=== PATIENT | female | born 1965 | race Two or more races ===

== ENCOUNTER 2024-08-18 10:50 | Day surgery (SDC) | payer MEDICAID, SELFPAY ==
--- NOTE | 2024-08-14 14:40 | EKG_ITS ---
[facility] Test Date: 2024-08-14 Pat Name: RYDER ROBERTSON Department: Room: - Gender: Female Scaffold Builder: HSARON : 1965 Requested By: Andrew Manriquez Order Number: [id number] Reading MD: Andrew Manriquez Measurements Intervals [place] Rate: 78 P: 67 UT: 155 QRS: -5 QRSD: 135 T: 39 QT: 404 QTc: 462 Interpretive Statements SINUS RHYTHM RIGHT BUNDLE BRANCH BLOCK POSSIBLE ANTERIOR MYOCARDIAL INFARCTION , PROBABLY OLD No previous ECG available for comparison /[id number]/[id number]
[2024-08-14 14:52] VITALS: BMI 34.3
[2024-08-14 15:50] LABS: Basophils # (Auto) 0.1 Thou/mm3 (0.0-0.2); Basophils % (Auto) 1 % (0-2.5); Eosinophils # (Auto) 0.2 Thou/mm3 (0.0-0.5); Eosinophils % (Auto) 4 % (0-10); Hematocrit 45.7 % (36.0-46.0); Hemoglobin 14.9 g/dL (12.0-16.0); Immature Granulocytes % (Auto) 0 % (0-0); Immature Granulocytes Auto 0.02 Thou/mm3 (0.00-0.00); Lymphocytes # (Auto) 2.8 Thou/mm3 (1.0-4.8); Lymphocytes % (Auto) 54 % (10-50); Mean Corpuscular HGB Conc 32.6 g/dl (31.0-37.0); Mean Corpuscular Hemoglobin 26.4 pg (25.0-35.0); Mean Corpuscular Volume 81 fL (80-100); Monocytes # (Auto) 0.3 Thou/mm3 (0.0-0.8); Monocytes % (Auto) 6 % (0-12); Neutrophils # (Auto) 1.8 Thou/mm3 (1.8-7.7); Neutrophils % (Auto) 36 % (37-80); Nucleated Red Blood Cell % 0 /100 WBC (0); Platelet Count 314 Thou/mm3 (140-440); RDW Standard Deviation 40.4 fL (36.4-46.3); Red Blood Count 5.65 Miln/mm3 (4.00-5.20); White Blood Count 5.1 Thou/mm3 (3.6-11.0)
[2024-08-14 15:55] LABS: Alanine Aminotransferase 20 U/L (10-49); Albumin, Serum 4.7 gm/dL (3.5-5.0); Albumin/Globulin Ratio 1.7 (1.2-2.2); Alkaline Phosphatase 87 U/L (46-116); Anion Gap 5 (7-16); Aspartate Amino Transferase < 10 U/L (0-34); BUN/Creatinine Ratio 11 Ratio (12-20); Bilirubin,Total 0.4 mg/dL (0.3-1.2); Blood Urea Nitrogen 10 mg/dL (9-23); Calcium 10.1 mg/dL (8.3-10.6); Calcium (Corrected) 10.1 mg/dL (8.5-10.1); Carbon Dioxide 28.4 mMol/L (20.0-31.0); Chloride 103 mMol/L (98-107); Creatinine (Component) 0.9 mg/dL (0.6-1.3); Estimated Creatinine Clearance 75.2 mL/min (>60); Globulin 2.7 gm/dL (2.3-3.5); Glucose 174 mg/dL (74-106); Osmolality,Calculated 274 (275-295); Sodium 136 mMol/L (136-145); Total Protein 7.4 gm/dL (5.7-8.2); eGFR > 60 See Note
[2024-08-14 15:57] LABS: HCG,Qualitative Serum Negative
[2024-08-14 16:29] LABS: INR 0.9 (0.9-1.3); Partial Thromboplastin Time 26.5 Seconds (22.0-36.0); Prothrombin Time 10.2 Seconds (9.0-12.2)
--- NOTE | 2024-08-17 15:09 | SUR.PREOP ---
Pt notified to come in at 1100 tomorrow for surgery.
[2024-08-18] VITALS (8 sets, daily range): BP systolic 101–127; BP diastolic 54–88; PULSE 66–79; RESP 12–19; TEMP 36.2–36.4; O2SAT 96–100; BMI 35.9
[2024-08-18] MEDS: RINGERS LACTATED 500 ML 500 ML 20 ML IV (12:27)
--- NOTE | 2024-08-18 13:52 | SUR.PHASEI ---
pt received from OR in recovery bay 8. pt asleep but responds to voice, breathing unlabored on room air. v/s stable. pt dressing to right hand cdi. report received from Dr. Solano and Karl BAILON.
--- NOTE | 2024-08-18 13:55 | PD.SUROPNT ---
Date of Procedure 08/18/24 Pre Op Diagnosis Severe right carpal tunnel compression Post Op Diagnosis Same Procedure Right carpal tunnel release Findings Patient had quite thick deep carpal ligament pressing over the median nerve Procedure Description Patient was given general endotracheal anesthesia. Once satisfactory anesthesia achieved a tourniquet was placed on right upper arm. Following that the part was thoroughly prepped and draped. After using Esmarch the tourniquet pressure was raised to 250 mmHg. Intravenous antibiotics was given at the time of anesthesia A skin incision was made from the discrete extending distally for about 2 to 2-1/2 inches long. Deeper dissection was carried out. The subcu tissue and fascia was incised. Following that palmar aponeurosis was incised in the line of his skin incision. The palmaris brevis muscle was encountered which was also incised. Following that deep carpal ligament was incised. A gentle stab incision was made and then a [place] was introduced underneath the deep carpal ligament and it was incised all along its vertical length Median nerve was seen. The blood vessels was seen running quite well Wound was irrigated with antibiotic solution every 4 to 5 minutes Following that the wound was closed with the help of 3-0 Prolene in an interrupted fashion. About 20 mL of quarter percent Marcaine was injected the at the skin incision site After cleaning the wound sterile dressing was applied. Tourniquet pressure was released Patient tolerated procedure well. Estimated blood loss 1 mL Anesthesia GETA Pathology / specimen None Estimated Blood Loss 1 Surgeon Andrew Stanley MD Surgical Staff Operation Date: 08/18/24 13:15 <No data on this case meets the specified criteria>
--- NOTE | 2024-08-18 14:30 | SUR.PHASEII ---
pt able to tolerate oral fluids without difficulty swallowing or nausea/vomiting.
--- NOTE | 2024-08-18 15:20 | ESHP_ITS ---
RE: MARCELO SOLER : 1965 DATE OF ADMISSION: 08/18/2024 The patient came to my office on 08/17/2024 for detailed preoperative history and physical examination. HISTORY OF PRESENT COMPLAINT: The patient presented to me earlier with history of numbness in the right hand. Outer 4 digits goes to sleep. There is burning and tingling sensation as well. At nighttime, the hand goes to sleep and patient has to shake her hand to bring it back to life. Basically clinically, she has right carpal tunnel compression. Nerve conduction studies and EMG were performed earlier, which revealed severe carpal tunnel compression. PAST MEDICAL HISTORY: The patient has history of diabetes mellitus and high blood pressure. She also has thyroid problem. No history of asthma, seizure, chest pain, myocardial infarction or bleeding disorder. PAST SURGICAL HISTORY: The patient has had , tonsillectomy, sleeve operation, and breast reduction operation. DRUG HISTORY: The patient is on: 1. Atorvastatin. 2. Cholecalciferol. 3. Diltiazem. 4. Naprosyn. 5. Gabapentin. 6. Levothyroxine. 7. Lisinopril. 8. Ozempic. ALLERGIES: NIL KNOWN. FAMILY HISTORY AND SOCIAL HISTORY: The patient denies smoking and drinking and is not working. PHYSICAL EXAMINATION: GENERAL: Normal-built lady. VITAL SIGNS: Pulse 88 per minute and blood pressure 136/84. NECK: Soft and supple. No mass felt. Trachea is centrally placed. CARDIOVASCULAR SYSTEM: First and second heart sounds normal. No murmur heard. RESPIRATORY SYSTEM: Bilateral vesicular breath sounds. Chest clear. ABDOMEN: Soft. No mass felt. Bowel sounds present. BREASTS: Not indicated in this case. The patient is advised to see the family physician for regular examination. EXTREMITIES: Right hand examination revealed no wasting of the thenar and/or hypothenar eminence. There is decreased sign in outer 4 digits. Tinel signs and Phalen signs are positive. Weak fist and grounds cleaner. Nerve conduction studies and EMG confirmed severe carpal tunnel compression. Since patient is symptomatic and it is affecting her quality of life and activity of daily living, therefore right carpal tunnel release was discussed and advised. With the help of pictures, diagram and posters, it was explained to her in detail. All questions were answered. Risk with anesthesia was explained and that includes, but not limited to reaction to anesthetic agents, cardiac arrest and rarely it might be fatal. Risk with operation includes infection, and if that happens, patient may need further surgical procedure. Other risks include delayed healing, wound dehiscence, etc. No guarantee is given regarding outcome of the procedure and/or relief of symptoms. Indeed, sometimes the scar pain lasts longer, but eventually it gets better. Surgery is booked for 08/18/2024. Appropriate lab work done. DT: 14:02:43 TT: 15:17:00 Ref: [id number] - TID: [id number]
--- NOTE | 2024-08-18 15:25 | SUR.PHASEII ---
pt awake and alert, breathing unlabored on room air. v/s stable. pt dressing to right wrist cdi and arm sling intact. pt able to ambulate to wheelchair with steady gait. d/c instructions given with son Bjorn in room, all questions answered. pt d/c via wheelchair with steady gait.
== END 2024-08-18 15:25 | disposition home or self-care (01) ==
PROVIDERS: Anesthesiology; PCP Student in an Organized Health Care Education/Training Program; Referring Provider Orthopaedic Surgery; Visit Provider Orthopaedic Surgery
PROC: (CPT 64721; principal; 2024-08-18 13:00)
DX: G56.01 Carpal tunnel syndrome, right upper limb (principal); E11.9 Type 2 diabetes mellitus without complications; Z90.89 Acquired absence of other organs; Z01.810 Encounter for preprocedural cardiovascular examination
CPT/HCPCS: 64721; 36415; 80053; 84703; 85025; 85610; 85730; 93005; A4649; J0690; J1100; J1580; J2250; J2704; J2765; J3010; J3490; J7120